=== PATIENT | female | born 1995 | race Caucasian/White ===

== ENCOUNTER → 2020-04-19 | Outpatient (CLI) | payer OTHER | LOC: COL.RAD 12:48 | DX: Z31.9 Encounter for procreative management, unspecified (principal) | CPT/HCPCS: Q9967 ==

== ENCOUNTER 2021-04-17 06:11 | Inpatient (IN) | payer OTHER ==
[2021-04-17] VITALS (64 sets, daily range): BP systolic 81–138; BP diastolic 44–86; PULSE 82–146; TEMP 97.5–98.6
[~2021-04-17] VITALS: Ht 157.5 cm; Wt 75.5 kg
--- NOTE | 2021-04-17 06:15 | NUR ---
Admits to L&D for scheduled induction of labor, ambulatory, accompanied by spouse, Nate. Instructed to empty bladder and change into gown. Reports positive movement. Reports she had some contractions on her own yesterday, but denies any currently.
[2021-04-17 07:03] LABS: HEMATOCRIT 38.3 % (37.0-47.0); MEAN CELL VOLUME 87 fl (80.0-100.0); MEAN CORPUSCULAR HEMOGLOBIN 30 pg (27.0-31.0); MEAN CORPUSCULAR HGB CONC 34 g/dl (33.0-37.0); MEAN PLATELET VOLUME 10.4 fl (7.4-10.4); PLATELET COUNT 312 K/mm3 (130-400); RED BLOOD COUNT 4.38 M/mm3 (4.10-5.30); REDCELL DISTRIBUTION WIDTH-CV 14.5 % (11.5-14.5)
[2021-04-17 07:33] LABS: BAND 19 % (0-10); LYMPHOCYTE 31 % (20.0-51.0); METAMYELOCYTE 1 % (0-0); NEUTROPHILS 44 % (42.0-75.2); PLATELET ESTIMATE NORMAL (NORMAL)
--- NOTE | 2021-04-17 08:12 | NUR ---
here. Patient allowed to get up to BR to empty bladder prior to SVE/AROM.
[2021-04-17] MEDS ORDERED: GLUCOPHAGE1000 MG PO (08:28)
[2021-04-17] MEDS ORDERED: PNV-DHA1 SGL PO (08:28)
[2021-04-17] MEDS ORDERED: OSCAL 500 TAB500 MG PO (08:29)
[2021-04-17] MEDS ORDERED: OMEGA-3 1000 MG1 CAP PO (08:30)
--- NOTE | 2021-04-17 11:25 | NUR ---
Requests epidural at this time. LR bolus begun, anesthesia notified of patient request.
--- NOTE | 2021-04-17 11:42 | NUR ---
1142: JOSÉ MIGUEL Marquis, here for epidural placement per patient request. 1144: Procedural time-out performed. 1154: Epidural space obtained by HEATING FIXTURE TENDER. 1154: Single shot dose administered by HEATING FIXTURE TENDER. 1155: Epidural catheter threaded by JOSÉ MIGUEL, epidural needle out. 1156: Test dose administered by HEATING FIXTURE TENDER. Patient tolerates procedure well, no adverse reaction noted.
--- NOTE | 2021-04-17 12:18 | NUR ---
Ephedrine 10 mg IVP administered by this board writer for hypotension following epidural placement. Note patient symptomatic, nauseated, and pale in color, diaphoretic.
--- NOTE | 2021-04-17 12:25 | NUR ---
Casey catheter placed by this story writer in sterile fashion. Patient tolerates well. Clear yellow urine return.
--- NOTE | 2021-04-17 12:30 | NUR ---
Patient beginning to feel better following ephedrine injection, color has returned to face. Denies any nausea.
--- NOTE | 2021-04-17 12:40 | NUR ---
here, SVE performed.
--- NOTE | 2021-04-17 12:44 | NUR ---
Left lateral with peanut ball under right leg.
--- NOTE | 2021-04-17 14:12 | NUR ---
Repositioned chace position with right leg frogged out on top of peanut ball.
--- NOTE | 2021-04-17 14:21 | NUR ---
Left lateral with peanut ball under right leg. Popsicle provided.
--- NOTE | 2021-04-17 16:18 | NUR ---
Note late decel occurs immediately after attempting to reposition patient from left lateral to upright position. Repositioned to wedged right. This explained to patient and spouse. Verbalizes understanding.
--- NOTE | 2021-04-17 16:20 | NUR ---
Switched back to US, FSE not tracing well upon repositioning.
--- NOTE | 2021-04-17 16:45 | NUR ---
Positioned in left lateral.
--- NOTE | 2021-04-17 17:11 | NUR ---
Positioned right lateral with peanut ball under left leg.
--- NOTE | 2021-04-17 17:30 | NUR ---
Assumed care of patient. Rests in bed, alert, denies any needs at this time.
--- NOTE | 2021-04-17 17:45 | NUR ---
Rests in bed, alert. 1755 Patient repositioned, vag check done. Dilated to six, ninty percent effaced, zero station. Rachel-care given.
--- NOTE | 2021-04-17 22:30 | NUR ---
2230 DR COTTON AT BEDSIDE FOR SEVERAL MINUTES PUSHING WITH PT. READIED FOR DELIVERY. 2244 DELIVERY VIABLE MALE OVER 2ND DEGREE LAC WITH 8/9/9 APGARS. IV'S CONTINUE TO INFUSE.
[2021-04-18] VITALS (8 sets, daily range): BP systolic 101–118; BP diastolic 62–79; PULSE 79–115; TEMP 97.7–98.4
--- NOTE | 2021-04-18 00:15 | NUR ---
0015 IV TO INT. EPID CATH REMOVED. UP TO BR WITH ASSIST. VOIDED SM UNMEASURED AMOUNT. PERICARE DONE. AMB TO 208 AND SOM WELL
--- NOTE | 2021-04-18 00:45 | NUR ---
0045 MOTRIN 800MG PO GIVEN. REG DIET TAKEN. UP TO BR ON OWN TO VOID.
[2021-04-18] MEDS ORDERED: MOTRIN 800800 MG/TAB PO (06:15)
--- NOTE | 2021-04-18 09:17 | NUR ---
Initial visit; Family thanked [employer] Manager for offering congratulations and God's blessings for the of their son. [employer] Manager thanked family for choosing [facility].
--- NOTE | 2021-04-18 18:30 | NUR ---
Report recieved. Resting in bed. Reports perineal pain; reviewed comfort options. Tucks pads and ice pack provided. to breast. Updated whiteboard. Videos to bedside.
[2021-04-19 07:05] VITALS: BP 104/81; PULSE 90; TEMP 97.7
[2021-04-19] MEDS ORDERED: PERCOCET 325 MG1 TA2 PO (08:19)
[2021-04-19] MEDS ORDERED: NEWMANS TOP (08:25)
== END 2021-04-19 12:05 | disposition home or self-care (01) | DRG 807 ==
LOC: LDR 06:11 → OB 06:11
PROVIDERS: ADMIT Obstetrics & Gynecology
PROC: 10E0XZZ Delivery of Products of Conception, External Approach (ICD-10-PCS; principal; 2021-04-17)
PROC: 0KQM0ZZ Repair Perineum Muscle, Open Approach (ICD-10-PCS; 2021-04-17)
DX: O70.1 Second degree perineal laceration during delivery (principal); Z37.0 Single live birth; Z3A.39 39 weeks gestation of pregnancy
CPT/HCPCS: J1200; J2590; J7120

== ENCOUNTER → 2021-04-29 | Outpatient (CLI) | payer OTHER ==
[~2021-04-29] MED LIST: GLUCOPHAGE1000 MG PO; MOTRIN 800800 MG/TAB PO; NEWMANS TOP; OMEGA-3 1000 MG1 CAP PO; OSCAL 500 TAB500 MG PO; PERCOCET 325 MG1 TA2 PO; PNV-DHA1 SGL PO
--- NOTE | 2021-04-29 15:49 | NUR ---
Pt, Kay Lozano, presents for outpatient consult with 12 day old baby boy, Nilo Rowell, and her spouse Nate. Pt states she cannot get Nilo to latch. Nilo was born on [birth year] and weighed 6#11oz (3033 gms). Because of not latching well in the hospital, Kay has been pumping and bottle feeding. She reports Nilo drinks 1.5-2oz EBM every 2-3 hours. Voids and stools are WNL. Today Nilo weighs 6#12.2oz. Pt is instructed and assisted with latching Nilo to the right breast. With the instruction, she is able to duplicate it. Characteristics of a good latch observed. After the right breast for about 15 minutes, Nilo had a weight gain of 2.8oz (80 gms). He was content and did not latch the left side despite attempts and assistance by this LC. Handouts provided with instructions for latch techniques. Advised on management of breast overfullness if he only nurses one side at a feeding. POC: Breastfeed ad divya. F/U: As scheduled with Dr. Pérez. Questions invited and answered.
== END ==
LOC: LAC 14:33
DX: Z39.1 Encounter for care and examination of lactating mother (principal); Z71.89 Other specified counseling